=== PATIENT | female | born 1945 | race Caucasian/White ===

== ENCOUNTER 2019-10-04 06:24 | Day surgery (SDC) | payer OTHER, BC ==
[~2019-10-04] VITALS: Ht 160 cm; Wt 74.8 kg
[~2019-10-04 06:24] MED LIST: AMARYL4 MG PO; DILTIAZEM 24HR120 M1 PO; ELIQUIS5 MG PO; JANUMET 50-5001 EACH PO; LANTUS SUBQ; LEVOXYL50 MCG PO; LOPERAMIDE 2 MG2 M1 PO; NEURONTIN100 MG PO; POLYMYXIN B/TMP10 ML OPHTHALMIC; PRAVACHOL40 MG PO; PREDNISOLONE ACE5 ML OPHTHALMIC; TUMS300 MG PO
[2019-10-04 09:21] VITALS: BP 161/89
--- NOTE | 2019-10-08 06:26 | O ---
[facility] [place] [address] OPERATIVE REPORT Name: DARLYN LEAL Room #: DEP [facility].#: [id number] Admission: 10/04/19 Attend Phys: Harris Mathur MD Discharge: 10/04/19 Date of : 43 Report #: [id number] THIS REPORT FOR: cc: CEASAR IRVIN DR. Physician not on staff Harris Mathur MD ~ CC: Physician staff CEASAR Mathur DATE OF SERVICE: 10/04/2019 SURGEON: Harris Mathur MD FORESTER SILVICULTURE: None. PREOPERATIVE DIAGNOSIS: Bilateral lower lid ectropion. POSTOPERATIVE DIAGNOSIS: Bilateral lower lid ectropion. OPERATION PERFORMED: Bilateral lower lid ectropion repair. ANESTHESIA: Local with IV sedation. COMPLICATIONS: None. INDICATIONS FOR PROCEDURE: This patient has bilateral acquired lower lid ectropion with chronic tearing, keratopathy and discharge. The current procedures are undertaken in order to improve the patient's visual function, lacrimal outflow, and level of comfort. Informed consent was obtained to include but not limit to the risk of loss of vision, bleeding, infection, scarring, failure to improve the problem and need for further surgery. DESCRIPTION OF OPERATION: The patient was taken to the operating room where 2% Xylocaine with epinephrine mixed with equal parts of 0.75% Marcaine with Wydase was administered transcutaneously and transconjunctivally to each lower lid and lateral canthal area. The patient was then prepped and draped in the usual sterile fashion. A Steven clamp was then used to clamp the left lateral canthus following which a sharp canthotomy and cantholysis were performed. The tarsal strip was prepared laterally, removing the lash bearing portion of the redundant lid margin and the redundant tarsal plate. Hemostasis was achieved with a monopolar cautery, as it was throughout the case. The tarsal strip was then secured to the internal portion of the lateral orbital tubercle with two interrupted 5-0 Prolene sutures. The lateral canthal angle was sharply reformed [facility] [address] [place] [address] OPERATIVE REPORT Name: DARLYN LEAL Room #: DEP [facility] M.R.#: [id number] Admission: 10/04/19 Attend Phys: Harris Mathur MD Discharge: 10/04/19 Date of : 43 Report #: [id number] as the subcutaneous structures and the skin were closed with multiple interrupted 6-0 plain gut sutures. Attention was then turned to the right side where the same procedure was performed. The wounds were cleaned and dressed with ophthalmic antibiotic ointment. The patient was then transported to the recovery area, having tolerated the procedure well with no anesthetic or operative complications being noted. <ELECTRONICALLY SIGNED> By: Harris Mathur MD 10/08/19 [id number] [id number] Harris Mathur MD /nt
== END 2019-10-04 09:00 | disposition home or self-care (01) ==
LOC: OR 06:24 → TBA 06:25 → OR 09:00
PROVIDERS: ATTEND Ophthalmology
DX: H02.105 Unspecified ectropion of left lower eyelid (principal); H02.102 Unspecified ectropion of right lower eyelid; I10 Essential (primary) hypertension; E78.00 Pure hypercholesterolemia, unspecified; I48.91 Unspecified atrial fibrillation; E11.9 Type 2 diabetes mellitus without complications; G47.30 Sleep apnea, unspecified; Z98.0 Intestinal bypass and anastomosis status; K21.9 Gastro-esophageal reflux disease without esophagitis; E03.9 Hypothyroidism, unspecified; Z98.890 Other specified postprocedural states; Z79.899 Other long term (current) drug therapy; Z79.01 Long term (current) use of anticoagulants; Z90.710 Acquired absence of both cervix and uterus; Z87.891 Personal history of nicotine dependence; Z85.038 Personal history of other malignant neoplasm of large intestine; Z91.041 Radiographic dye allergy status; Z88.8 Allergy status to other drugs, medicaments and biological substances
CPT/HCPCS: 50010; 50101; 50386; 50398; 51636; 56527; 56531; 62110; 62850; 70005

== ENCOUNTER → 2020-03-11 | Outpatient (CLI) | payer OTHER, BC ==
[~2020-03-11] MED LIST changes: +PREVAGEN PO; +PROBIOTIC1 EAC7 PO; +REFRESH LIQUIGE15 ML OPHTHALMIC; +SUPER THERAVIT1 EACH PO; +SYSTANE 0.3-0.1 EACH OPHTHALMIC
== END ==
LOC: LAB 10:18
PROVIDERS: ATTEND Ophthalmology
DX: Z01.812 Encounter for preprocedural laboratory examination (principal); Z20.828 Contact with and (suspected) exposure to other viral communicable diseases